=== PATIENT | male | born 1965 | race African-American/Black ===

== ENCOUNTER 2016-07-12 15:48 | Inpatient (IN) | payer OTHER ==
[2016-07-12 17:44] VITALS: BMI 27.1
--- NOTE | 2016-07-12 20:11 | HP ---
CIWA Score - CIWA Score Nausea/Vomitin-Mild Nausea/No Vomiting Muscle Tremors: 4-Moderate,w/Arms Extend Anxiety: 4-Mod. Anxious/Guarded Agitation: 4-Moderately Restless Paroxysmal Sweats: 1-Minimal Palms Moist Orientation: 1-Uncertain about Date Tacttile Disturbances: 0-None Auditory Disturbances: 2-Mild Harshness/Frighten Visual Disturbances: 2-Mild Sensitivity Headache: 0-None Present CIWA-Ar Total Score: 19 Admission ROS BHS - HPI Chief Complaint: WITHDRAWAL SX Allergies/Adverse Reactions: Allergies Allergy/AdvReac Type Severity Reaction Status Date / Time egg Allergy Severe Hives Verified 09/05/15 14:08 History of Present Illness: 50 YEARS OLD MALE WITH LONG HISTORY OF ALCOHOL NICOTINE DEPENDENCE, HAS HYPERTENSION AND SCHIZOPHRENIA LONGEST SOBRIETY 28 DAYS IS ADMITTED TO DETOX Exam Limitations: No Limitations - Ebola screening Have you traveled outside of the country in the last 21 days: No Have you had contact with anyone from an Ebola affected area: No Have you been sick,other than usual withdrawal symptoms: No Do you have a fever: No - Review of Systems Constitutional: Chills, Changes in sleep, Weight Stable EENT: reports: No Symptoms Reported Respiratory: reports: SOB with Exertion Cardiac: reports: Chest Pain (CHRONIC CHEST PAIN), Palpitations GI: reports: Nausea, Poor Fluid Intake, Indigestion, Abdominal cramping : reports: No Symptoms Reported Musculoskeletal: reports: Joint Pain (RIGHT HAND) Integumentary: reports: No Symptoms Reported Neuro: reports: Tremors Endocrine: reports: No Symptoms Reported Hematology: reports: No Symptoms Reported Psychiatric: reports: Judgement Intact, Anxious, Depressed Other Systems: Reviewed and Negative Patient History - Patient Medical History Hx Anemia: No Hx Asthma: No Hx Chronic Obstructive Pulmonary Disease (COPD): No Hx Cancer: No Hx Cardiac Disorders: No Hx Congestive Heart Failure: No Hx Hypertension: Yes Hx Hypercholesterolemia: Yes Hx Pacemaker: No HX Cerebrovascular Accident: No Hx Seizures: No Hx Dementia: No Hx Diabetes: No Hx Gastrointestinal Disorders: No Hx Liver Disease: No Hx Genitourinary Disorders: No Hx Sexually Transmitted Disorders: No Hx Renal Disease (ESRD): No Hx Thyroid Disease: No Hx Human Immunodeficiency Virus (HIV): No (LAST 07/11 NEGATIVE) Hx Hepatitis C: No Hx Depression: No Hx Suicide Attempt: No (last 2015, "DO NOT REMEMBER WHAT HAPPEN") Hx Bipolar Disorder: No (on meds, also on xanax Rx for panic disorder) Hx Schizophrenia: Yes - Patient Surgical History Past Surgical History: No Hx Neurologic Surgery: No Hx Cataract Extraction: No Hx Cardiac Surgery: No Hx Lung Surgery: No Hx Breast Surgery: No Hx Breast Biopsy: No Hx Abdominal Surgery: No Hx Appendectomy: No Hx Cholecystectomy: No Hx Genitourinary Surgery: No Hx Orthopedic Surgery: No - PPD History Previous Implant?: Yes Documented Results: Negative w/proof Implanted On Prior [facility] Admission?: Yes Date: 12/31/16 Results: 0 mm PPD to be Administered?: No - Smoking Cessation Smoking history: Current every day smoker Have you smoked in the past 12 months: Yes Aproximately how many cigarettes per day: 4 Cigars Per Day: 0 Hx Chewing Tobacco Use: No Initiated information on smoking cessation: Yes 'Breaking Loose' booklet given: 07/12/16 - Substance & Tx. History Hx Alcohol Use: Yes Hx Substance Use: Yes Substance Use Type: Alcohol, Cocaine Hx Substance Use Treatment: Yes - Substances Abused Alcohol Route: Oral Frequency: Daily Amount used: 1/2 [place] Age of first use: 19 Date of Last Use: 07/12/16 Family Disease History - Family Disease History Family Disease History: Other: Father (alcohol,), Mother (alcohol, ), Sister (alcohol) Admission Physical Exam S - Vital Signs Vital Signs: Vital Signs - 24 hr 07/12/16 17:41 Temperature 96.2 F L Pulse Rate 92 H Respiratory 20 Rate Blood Pressure 151/96 - Physical General Appearance: Yes: Appropriately Dressed, Mild Distress, Alcohol on Breath , Tremorous, Irritable, Sweating, Anxious HEENTM: Yes: Hearing grossly Normal, Normal ENT Inspection, Normocephalic, Normal Voice Respiratory: Yes: Chest Non-Tender, Lungs Clear, Normal Breath Sounds, No Respiratory Distress, No Accessory Muscle Use Neck: Yes: Supple, Trachea in good position Breast: Yes: Breasts Symetrical Cardiology: Yes: Regular Rhythm, Regular Rate, S1, S2, Other (CHRONIC CHEST PAIN "MY HEART SKIP BEAT EVERY 2-3 MONTHS") Abdominal: Yes: Non Tender, Soft Genitourinary: Yes: Within Normal Limits Back: Yes: Normal Inspection Musculoskeletal: Yes: full range of Motion, Gait Steady, Muscle Pain (RIGHT HAND ) Extremities: Yes: Normal Inspection, Normal Range of Motion, Non-Tender, Tremors Neurological: Yes: Alert, Motor Strength 5/5, Normal Response, Depressed Affect Integumentary: Yes: Warm Lymphatic: Yes: Within Normal Limits - Diagnostic (1) Alcohol dependence with uncomplicated withdrawal Current Visit: Yes Status: Acute (2) Nicotine dependence Current Visit: Yes Status: Acute Qualifiers: Nicotine product type: cigarettes Substance use status: uncomplicated Qualified Code(s): F17.210 - Nicotine dependence, cigarettes, uncomplicated (3) GERD (gastroesophageal reflux disease) Current Visit: Yes Status: Acute Qualifiers: Esophagitis presence: without esophagitis Qualified Code(s): K21.9 - Gastro-esophageal reflux disease without esophagitis (4) HTN (hypertension) Current Visit: Yes Status: Acute Qualifiers: Hypertension type: essential hypertension Qualified Code(s): I10 - Essential (primary) hypertension (5) Schizophrenia Current Visit: Yes Status: Suspected Qualifiers: Schizophrenia type: disorganized schizophrenia Qualified Code(s): F20.1 - Disorganized schizophrenia (6) Chronic chest wall pain Current Visit: Yes Status: Inactive Comment: "MY HEART SKIP BEAT EVERY 2-3 MONTHS" Cleared for Admission [facility] - Detox or Rehab [facility] Level of Care: Medically Managed Detox Regimen/Protocol: Librium [facility] Breath Alcohol Content Breath Alcohol Content: 0.065 Urine Drug Screen - Results Drug Screen Negative: No Urine Drug Screen Results: ASYA-Cocaine, TCA-Tricyclic Antidepress
[2016-07-12] MEDS ORDERED: chlordiazePOXIDE HCL 25 MG CAPSULE PO PRN (20:15)
[2016-07-12] MEDS ORDERED: ACETAMINOPHEN 325 MG TABLET (FP) PO PRN (20:15)
[2016-07-12] MEDS ORDERED: hydrOXYzine PAMOATE 50 MG CAPSULE (FP) PO PRN (20:15)
[2016-07-12] MEDS ORDERED: MENTHOL/PHENOL 1 EACH UD MM PRN (20:15)
[2016-07-12] MEDS ORDERED: IBUPROFEN 400 MG TABLET (FP) PO PRN (20:15)
[2016-07-12] MEDS ORDERED: guaiFENesin/D-METHORPHAN HB 10 ML UNIT-DOSE CUPS PO PRN (20:15)
[2016-07-12] MEDS ORDERED: LOPERAMIDE HCL 2 MG CAPSULE PO PRN (20:15)
[2016-07-12] MEDS ORDERED: MAG HYDROX/AL HYDROX/SIMETH 30 ML UNIT-DOSE CUP PO PRN (20:15)
[2016-07-12] MEDS ORDERED: MAGNESIUM CITRATE 300 ML BOTTLE PO PRN (20:15)
[2016-07-12] MEDS ORDERED: MAGNESIUM HYDROX 2400MG/30ML ORAL SUSPENSION 30 ML CUP PO PRN (20:15)
[2016-07-12] MEDS ORDERED: P-EPHED 60MG/TRIPROLIDI 2.5MG TABLET PO PRN (20:15)
[2016-07-12] MEDS ORDERED: cloNIDine HCL 0.1 MG TABLET PO PRN (20:20)
[2016-07-12] MEDS: THIAMINE HCL 100 MG TABLET (FP) PO SCH (22:30)
[2016-07-12] MEDS: chlordiazePOXIDE HCL 25 MG CAPSULE PO SCH (22:30)
[2016-07-12] MEDS: RANITIDINE HCL 150 MG TABLET (FP) PO SCH (22:30)
[2016-07-12 23:27] LABS: URINE APPEARANCE CLEAR; URINE BILIRUBIN NEGATIVE (NEGATIVE); URINE BLOOD NEGATIVE (NEGATIVE); URINE COLOR LTYELLOW; URINE GLUCOSE (UA) NEGATIVE (NEGATIVE); URINE KETONE NEGATIVE (NEGATIVE); URINE LEUK ESTERASE NEGATIVE (NEGATIVE); URINE NITRITE NEGATIVE (NEGATIVE); URINE PROTEIN NEGATIVE (NEGATIVE); URINE UROBILINOGEN NEGATIVE E.U./dl (0.2-1.0)
[2016-07-12] MEDS: diphenhydrAMINE HCL 50 MG CAPSULE PO PRN (23:30)
[2016-07-13] MEDS: diphenhydrAMINE HCL 50 MG CAPSULE PO PRN (01:51)
[2016-07-13] MEDS: chlordiazePOXIDE HCL 25 MG CAPSULE PO SCH ×4 (05:28→22:12)
--- NOTE | 2016-07-13 10:26 | PN ---
[facility] CIWA - CIWA Score Nausea/Vomitin-No Nausea/No Vomiting Muscle Tremors: 4-Moderate,w/Arms Extend Anxiety: 4-Mod. Anxious/Guarded Agitation: 4-Moderately Restless Paroxysmal Sweats: 1-Minimal Palms Moist Orientation: 0-Oriented Tacttile Disturbances: 3-Moderate Itch/Numb/Burn Auditory Disturbances: 0-None Visual Disturbances: 0-None Headache: 0-None Present CIWA-Ar Total Score: 16 BHS Progress Note (SOAP) Subjective: ANXIETY,SWEATS,IRRITABILITY,FATIGUE. Objective: 07/13/16 10:24 Vital Signs Temperature 95.9 F L 07/13/16 10:21 Pulse Rate 85 07/13/16 10:21 Respiratory Rate 18 07/13/16 10:21 Blood Pressure 156/106 07/13/16 10:21 O2 Sat by Pulse Oximetry (%) Laboratory Last Values Urine Color Ltyellow 07/12/16 21:29 Urine Appearance Clear 07/12/16 21:29 Urine pH 6.0 (5.0-8.0) 07/12/16 21:29 Ur Specific [place] 1.012 (1.001-1.035) 07/12/16 21:29 Urine Protein Negative (NEGATIVE) 07/12/16 21:29 Urine Glucose (UA) Negative (NEGATIVE) 07/12/16 21:29 Urine Ketones Negative (NEGATIVE) 07/12/16 21:29 Urine Blood Negative (NEGATIVE) 07/12/16 21:29 Urine Nitrite Negative (NEGATIVE) 07/12/16 21:29 Urine Bilirubin Negative (NEGATIVE) 07/12/16 21:29 Urine Urobilinogen Negative E.U./dl (0.2-1.0) 07/12/16 21:29 Ur Leukocyte Esterase Negative (NEGATIVE) 07/12/16 21:29 OTHER LABS PENDING Assessment: 07/13/16 10:25 WITHDRAWAL SX Plan: CONTINUE DETOX
[2016-07-13] MEDS: RANITIDINE HCL 150 MG TABLET (FP) PO SCH ×2 (10:29→22:12)
[2016-07-13] MEDS: PRENATAL VITAMINS W/ FOLIC ACID TABLET (FP) PO SCH (10:29)
[2016-07-13] MEDS: HYDROCHLOROTHIAZIDE 25 MG TABLET (FP) PO SCH (10:29)
[2016-07-13] MEDS: NICOTINE 14 MG/24 HOURS TOPICAL PATCH TD SCH (10:29)
[2016-07-13 10:31] LABS: ALBUMIN 3.3 g/dl (3.4-5.0); ANION GAP 8 (8-16); BILIRUBIN,TOTAL 0.4 mg/dL (0.2-1.0); CALCIUM 8.7 mg/dL (8.5-10.1); CO2 27 mmol/L (21-32); GLUCOSE,RANDOM 94 mg/dL (74-106); MCHC 33.6 g/dl (32.0-35.9); MEAN CELL VOLUME 86.3 fl (80-96); MEAN PLT VOLUME 8.5 fl (7.5-11.1); PLATELET COUNT 201 K/MM3 (134-434); RDW 16.4 % (11.9-15.9); SGOT/AST 33 U/L (15-37); SGPT/ALT 49 U/L (12-78); WHITE BLOOD COUNT 8.8 K/mm3 (4.0-10.0)
[2016-07-13 10:33] LABS: ALK PHOS 83 U/L (45-117); TOT PROT 6.9 g/dl (6.4-8.2)
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
--- NOTE | 2016-07-13 11:47 | EKG ---
Test Reason : Blood Pressure : / mmHG Vent. Rate : 075 BPM Atrial Rate : 075 BPM P-R Int : 180 ms QRS Dur : 088 ms QT Int : 426 ms P-R-T Axes : 056 035 061 degrees QTc Int : 475 ms NORMAL SINUS RHYTHM POSSIBLE LEFT ATRIAL ENLARGEMENT SEPTAL INFARCT , AGE UNDETERMINED ABNORMAL ECG NO PREVIOUS ECGS AVAILABLE Confirmed by GERMANIA BOGSG MD ([id number]) on 07/13/2016 11:47:49 AM Referred By: Confirmed By:GERMANIA BOGGS MD
[2016-07-13 12:27] LABS: HIV 1 & 2 AB NEGATIVE; HIV 1 AGp24 NEGATIVE
[2016-07-13] MEDS: traZODone HCL 100 MG TABLET (FP) PO SCH (22:12)
[2016-07-13] MEDS: QUEtiapine FUMARATE 300 MG TABLET PO SCH (22:12)
[2016-07-13] MEDS: THIAMINE HCL 100 MG TABLET (FP) PO SCH (22:12)
[2016-07-14] MEDS: chlordiazePOXIDE HCL 25 MG CAPSULE PO SCH ×3 (05:32→17:27)
[2016-07-14] MEDS: CYCLOBENZAPRINE HCL 10 MG TABLET (FP) PO PRN ×2 (05:32→10:30)
[2016-07-14] MEDS: PRENATAL VITAMINS W/ FOLIC ACID TABLET (FP) PO SCH (10:30)
[2016-07-14] MEDS: NICOTINE 14 MG/24 HOURS TOPICAL PATCH TD SCH (10:30)
[2016-07-14] MEDS: RANITIDINE HCL 150 MG TABLET (FP) PO SCH ×2 (10:30→22:14)
[2016-07-14] MEDS: HYDROCHLOROTHIAZIDE 25 MG TABLET (FP) PO SCH (10:32)
--- NOTE | 2016-07-14 10:47 | PN ---
[facility] CIWA - CIWA Score Nausea/Vomitin-No Nausea/No Vomiting Muscle Tremors: 4-Moderate,w/Arms Extend Anxiety: 4-Mod. Anxious/Guarded Agitation: 4-Moderately Restless Paroxysmal Sweats: 1-Minimal Palms Moist Orientation: 0-Oriented Tacttile Disturbances: 3-Moderate Itch/Numb/Burn Auditory Disturbances: 0-None Visual Disturbances: 0-None Headache: 0-None Present CIWA-Ar Total Score: 16 BHS Progress Note (SOAP) Subjective: ANXIETY,SWEATS,SLIGHT TREMORS,FATIGUE. Objective: 07/14/16 10:47 Vital Signs Temperature 97.0 F L 07/14/16 10:18 Pulse Rate 90 07/14/16 10:18 Respiratory Rate 20 07/14/16 10:18 Blood Pressure 118/84 07/14/16 10:18 O2 Sat by Pulse Oximetry (%) Laboratory Last Values WBC 8.8 K/mm3 (4.0-10.0) 07/13/16 07:00 RBC 4.29 M/mm3 (4.00-5.60) 07/13/16 07:00 Hgb 12.4 GM/dL (11.7-16.9) 07/13/16 07:00 Hct 37.0 % (35.4-49) 07/13/16 07:00 MCV 86.3 fl (80-96) 07/13/16 07:00 MCHC 33.6 g/dl (32.0-35.9) 07/13/16 07:00 RDW 16.4 % (11.9-15.9) H 07/13/16 07:00 Plt Count 201 K/MM3 (134-434) 07/13/16 07:00 MPV 8.5 fl (7.5-11.1) 07/13/16 07:00 Sodium 139 mmol/L (136-145) 07/13/16 07:00 Potassium 3.8 mmol/L (3.5-5.1) 07/13/16 07:00 Chloride 104 mmol/L (98-107) 07/13/16 07:00 Carbon Dioxide 27 mmol/L (21-32) 07/13/16 07:00 Anion Gap 8 (8-16) 07/13/16 07:00 BUN 13 mg/dL (7-18) 07/13/16 07:00 Creatinine 1.0 mg/dL (0.7-1.3) 07/13/16 07:00 Creat Clearance w eGFR > 60 (>60) 07/13/16 07:00 Random Glucose 94 mg/dL (74-106) 07/13/16 07:00 Calcium 8.7 mg/dL (8.5-10.1) 07/13/16 07:00 Total Bilirubin 0.4 mg/dL (0.2-1.0) 07/13/16 07:00 AST 33 U/L (15-37) 07/13/16 07:00 ALT 49 U/L (12-78) 07/13/16 07:00 Alkaline Phosphatase 83 U/L (45-117) 07/13/16 07:00 Total Protein 6.9 g/dl (6.4-8.2) 07/13/16 07:00 Albumin 3.3 g/dl (3.4-5.0) L 07/13/16 07:00 Urine Color Ltyellow 07/12/16 21:29 Urine Appearance Clear 07/12/16 21:29 Urine pH 6.0 (5.0-8.0) 07/12/16 21:29 Ur Specific [place] 1.012 (1.001-1.035) 07/12/16 21:29 Urine Protein Negative (NEGATIVE) 07/12/16 21:29 Urine Glucose (UA) Negative (NEGATIVE) 07/12/16 21:29 Urine Ketones Negative (NEGATIVE) 07/12/16 21:29 Urine Blood Negative (NEGATIVE) 07/12/16 21:29 Urine Nitrite Negative (NEGATIVE) 07/12/16 21:29 Urine Bilirubin Negative (NEGATIVE) 07/12/16 21:29 Urine Urobilinogen Negative E.U./dl (0.2-1.0) 07/12/16 21:29 Ur Leukocyte Esterase Negative (NEGATIVE) 07/12/16 21:29 RPR Titer Nonreactive (NONREACTIVE) 07/13/16 07:00 HIV 1&2 Antibody Screen Negative 07/13/16 07:00 HIV P24 Antigen Negative 07/13/16 07:00 Assessment: 07/14/16 10:47 WITHDRAWAL SX Plan: CONTINUE DETOX
[2016-07-14] MEDS: chlordiazePOXIDE 5 MG CAPSULE PO SCH (22:14)
[2016-07-14] MEDS: QUEtiapine FUMARATE 300 MG TABLET PO SCH (22:14)
[2016-07-14] MEDS: THIAMINE HCL 100 MG TABLET (FP) PO SCH (22:14)
[2016-07-14] MEDS: traZODone HCL 100 MG TABLET (FP) PO SCH (22:15)
[2016-07-15] MEDS: chlordiazePOXIDE 5 MG CAPSULE PO SCH ×3 (05:37→17:03)
[2016-07-15] MEDS: PRENATAL VITAMINS W/ FOLIC ACID TABLET (FP) PO SCH (10:44)
[2016-07-15] MEDS: RANITIDINE HCL 150 MG TABLET (FP) PO SCH ×2 (10:44→22:19)
[2016-07-15] MEDS: HYDROCHLOROTHIAZIDE 25 MG TABLET (FP) PO SCH (10:45)
[2016-07-15] MEDS: NICOTINE 14 MG/24 HOURS TOPICAL PATCH TD SCH (10:45)
[2016-07-15] MEDS: NICOTINE POLACRILEX 2 MG GUM BC PRN ×2 (10:47→17:05)
--- NOTE | 2016-07-15 11:01 | PN ---
BHS Progress Note (SOAP) Subjective: ANXIETY,SWEATS,FATIGUE. Objective: 07/15/16 11:00 Vital Signs Temperature 95.6 F L 07/15/16 09:33 Pulse Rate 107 H 07/15/16 09:33 Respiratory Rate 20 07/15/16 09:33 Blood Pressure 117/82 07/15/16 09:33 O2 Sat by Pulse Oximetry (%) Assessment: 07/15/16 11:00 WITHDRAWAL SX Plan: CONTINUE DETOX
[2016-07-15] MEDS: traZODone HCL 100 MG TABLET (FP) PO SCH (22:19)
[2016-07-15] MEDS: chlordiazePOXIDE HCL 10 MG CAPSULE PO SCH (22:19)
[2016-07-15] MEDS: THIAMINE HCL 100 MG TABLET (FP) PO SCH (22:19)
[2016-07-15] MEDS: QUEtiapine FUMARATE 300 MG TABLET PO SCH (22:19)
[2016-07-16] MEDS: chlordiazePOXIDE HCL 10 MG CAPSULE PO SCH (05:24)
[2016-07-16] MEDS: CYCLOBENZAPRINE HCL 10 MG TABLET (FP) PO PRN (05:25)
[2016-07-16 06:31] VITALS: BP 105/71; PULSE 92; TEMP 97
--- NOTE | 2016-07-16 12:53 | DS ---
[facility] Detox Discharge Summary Admission Date: 07/12/16 Discharge Date: 07/16/16 - History Present History: Alcohol Dependence Pertinent Past History: GERD, HTN - Physical Exam Results Vital Signs: Vital Signs Temperature 97 F L 07/16/16 06:31 Pulse Rate 92 H 07/16/16 06:31 Respiratory Rate 18 07/16/16 06:31 Blood Pressure 105/71 07/16/16 06:31 O2 Sat by Pulse Oximetry (%) Pertinent Admission Physical Exam Findings: WITHDRAWAL SX Laboratory Last Values WBC 8.8 K/mm3 (4.0-10.0) 07/13/16 07:00 RBC 4.29 M/mm3 (4.00-5.60) 07/13/16 07:00 Hgb 12.4 GM/dL (11.7-16.9) 07/13/16 07:00 Hct 37.0 % (35.4-49) 07/13/16 07:00 MCV 86.3 fl (80-96) 07/13/16 07:00 MCHC 33.6 g/dl (32.0-35.9) 07/13/16 07:00 RDW 16.4 % (11.9-15.9) H 07/13/16 07:00 Plt Count 201 K/MM3 (134-434) 07/13/16 07:00 MPV 8.5 fl (7.5-11.1) 07/13/16 07:00 Sodium 139 mmol/L (136-145) 07/13/16 07:00 Potassium 3.8 mmol/L (3.5-5.1) 07/13/16 07:00 Chloride 104 mmol/L (98-107) 07/13/16 07:00 Carbon Dioxide 27 mmol/L (21-32) 07/13/16 07:00 Anion Gap 8 (8-16) 07/13/16 07:00 BUN 13 mg/dL (7-18) 07/13/16 07:00 Creatinine 1.0 mg/dL (0.7-1.3) 07/13/16 07:00 Creat Clearance w eGFR > 60 (>60) 07/13/16 07:00 Random Glucose 94 mg/dL (74-106) 07/13/16 07:00 Calcium 8.7 mg/dL (8.5-10.1) 07/13/16 07:00 Total Bilirubin 0.4 mg/dL (0.2-1.0) 07/13/16 07:00 AST 33 U/L (15-37) 07/13/16 07:00 ALT 49 U/L (12-78) 07/13/16 07:00 Alkaline Phosphatase 83 U/L (45-117) 07/13/16 07:00 Total Protein 6.9 g/dl (6.4-8.2) 07/13/16 07:00 Albumin 3.3 g/dl (3.4-5.0) L 07/13/16 07:00 Urine Color Ltyellow 07/12/16 21:29 Urine Appearance Clear 07/12/16 21:29 Urine pH 6.0 (5.0-8.0) 07/12/16 21:29 Ur Specific [place] 1.012 (1.001-1.035) 07/12/16 21:29 Urine Protein Negative (NEGATIVE) 07/12/16 21:29 Urine Glucose (UA) Negative (NEGATIVE) 07/12/16 21:29 Urine Ketones Negative (NEGATIVE) 07/12/16 21:29 Urine Blood Negative (NEGATIVE) 07/12/16 21:29 Urine Nitrite Negative (NEGATIVE) 07/12/16 21:29 Urine Bilirubin Negative (NEGATIVE) 07/12/16 21:29 Urine Urobilinogen Negative E.U./dl (0.2-1.0) 07/12/16 21:29 Ur Leukocyte Esterase Negative (NEGATIVE) 07/12/16 21:29 RPR Titer Nonreactive (NONREACTIVE) 07/13/16 07:00 HIV 1&2 Antibody Screen Negative 07/13/16 07:00 HIV P24 Antigen Negative 07/13/16 07:00 LABS NOTED - Treatment Hospital Course: Detox Protocol Followed, Detoxed Safely, Responded well, Discharged Condition Good - Medication Discharge Medications: Ambulatory Orders Thiamine HCl [Vitamin B1 -] 100 mg PO HS #30 tablet 11/30/14 Quetiapine Fumarate [Seroquel -] 200 mg PO HS #30 tablet 04/21/15 Hydrochlorothiazide [Hctz -] 25 mg PO DAILY #30 tablet 04/24/15 Pantoprazole Sodium [Protonix] 40 mg PO DAILY #30 tablet. 02/01/16 Alprazolam [Xanax] 0.25 mg PO DAILY PRN 09/05/15 Quetiapine Fumarate [Seroquel -] 200 mg PO HS #30 tab 09/07/15 Quetiapine Fumarate [Seroquel -] 600 mg PO HS #60 tablet 07/13/16 Trazodone HCl [Desyrel -] 100 mg PO HS #30 tablet 07/13/16 - Diagnosis (1) Drug-induced mood disorder Status: Acute (2) Alcohol dependence with uncomplicated withdrawal Status: Acute (3) Anxiety disorder Status: Acute Qualifiers: Anxiety disorder type: generalized anxiety disorder Qualified Code(s ): F41.1 - Generalized anxiety disorder (4) Cocaine dependence Status: Acute Qualifiers: Substance use status: uncomplicated Qualified Code(s): F14.20 - Cocaine dependence, uncomplicated (5) GERD (gastroesophageal reflux disease) Status: Chronic Qualifiers: Esophagitis presence: without esophagitis Qualified Code(s): K21.9 - Gastro-esophageal reflux disease without esophagitis (6) HTN (hypertension) Status: Chronic Qualifiers: Hypertension type: essential hypertension Qualified Code(s): I10 - Essential (primary) hypertension - AMA Did Patient Leave Against Medical Advice: No
== END 2016-07-16 09:40 | disposition home or self-care (01) | DRG 774 ==
LOC: YASAS 15:48 → Y3N 20:52
PROVIDERS: ADMIT Internal Medicine; ATTEND Internal Medicine
PROC: HZ2ZZZZ Detoxification Services for Substance Abuse Treatment (ICD-10-PCS; principal; 2016-07-12)
DX: F10.230 Alcohol dependence with withdrawal, uncomplicated (principal); F14.20 Cocaine dependence, uncomplicated; F17.210 Nicotine dependence, cigarettes, uncomplicated; F19.24 Other psychoactive substance dependence with psychoactive substance-induced mood disorder; F41.1 Generalized anxiety disorder; F25.1 Schizoaffective disorder, depressive type; K21.9 Gastro-esophageal reflux disease without esophagitis; I10 Essential (primary) hypertension; E78.5 Hyperlipidemia, unspecified; R07.89 Other chest pain; Z91.5 Personal history of self-harm
CPT/HCPCS: 36415; 80053; 81003; 85027; 86593; 87389; 93005; 93010

== ENCOUNTER 2017-07-11 11:45 | Inpatient (IN) | payer OTHER ==
[2017-07-11 14:33] VITALS: BMI 27.3
--- NOTE | 2017-07-11 16:35 | HP ---
CIWA Score - CIWA Score Nausea/Vomitin-Mild Nausea/No Vomiting Muscle Tremors: 4-Moderate,w/Arms Extend Anxiety: 4-Mod. Anxious/Guarded Agitation: 4-Moderately Restless Paroxysmal Sweats: 1-Minimal Palms Moist Orientation: 0-Oriented Tacttile Disturbances: 0-None Auditory Disturbances: 1-Very Mild (man voices) Visual Disturbances: 1-Very Mild Sensitivity (seeing shadow) Headache: 0-None Present CIWA-Ar Total Score: 16 Admission ROS BHS - HPI Chief Complaint: withdrawal sx Allergies/Adverse Reactions: Allergies Allergy/AdvReac Type Severity Reaction Status Date / Time egg Allergy Severe Hives Verified 07/12/16 20:57 History of Present Illness: 51 years old male with long history of alcohol nicotine dependence has gerd hypertension and bipolar ii is admitted to detox Exam Limitations: No Limitations - Ebola screening Have you traveled outside of the country in the last 21 days: No Have you had contact with anyone from an Ebola affected area: No Have you been sick,other than usual withdrawal symptoms: No Do you have a fever: No - Review of Systems Constitutional: Changes in sleep, Weight Stable EENT: reports: Blurred Vision (need eye glasses) Respiratory: reports: No Symptoms reported Cardiac: reports: Chest Pain (chronic chest pain x 3 years, no treatment, last 20 minutes, angely away itself,) GI: reports: Constipated, Nausea, Poor Fluid Intake, Indigestion, Abdominal cramping : reports: No Symptoms Reported Musculoskeletal: reports: No Symptoms Reported Integumentary: reports: Dryness Neuro: reports: Tremors Endocrine: reports: No Symptoms Reported Hematology: reports: No Symptoms Reported Psychiatric: reports: Judgement Intact, Orientated x3, Anxious, Depressed Other Systems: Reviewed and Negative Patient History - Patient Medical History Hx Anemia: No Hx Asthma: No Hx Chronic Obstructive Pulmonary Disease (COPD): No Hx Cancer: No Hx Cardiac Disorders: No Hx Congestive Heart Failure: No Hx Hypertension: Yes (last dose 07/04/17) Hx Hypercholesterolemia: Yes (unknown name) Hx Pacemaker: No HX Cerebrovascular Accident: No Hx Seizures: No Hx Dementia: No Hx Diabetes: No Hx Gastrointestinal Disorders: Yes (ACID REFLUX) Hx Liver Disease: No Hx Genitourinary Disorders: No Hx Sexually Transmitted Disorders: No Hx Renal Disease (ESRD): No Hx Thyroid Disease: No Hx Human Immunodeficiency Virus (HIV): No (LAST 07/11 NEGATIVE) Hx Hepatitis C: No Hx Depression: No Hx Suicide Attempt: No Hx Bipolar Disorder: Yes (on meds, also on xanax Rx for panic disorder) Hx Schizophrenia: No - Patient Surgical History Past Surgical History: No Hx Neurologic Surgery: No Hx Cataract Extraction: No Hx Cardiac Surgery: No Hx Lung Surgery: No Hx Breast Surgery: No Hx Breast Biopsy: No Hx Abdominal Surgery: No Hx Appendectomy: No Hx Cholecystectomy: No Hx Genitourinary Surgery: No Hx Orthopedic Surgery: No - PPD History Previous Implant?: Yes Documented Results: Negative w/proof Implanted On Prior [facility] Admission?: Yes Date: 12/31/16 Results: 0 mm PPD to be Administered?: No - Smoking Cessation Smoking history: Current every day smoker Have you smoked in the past 12 months: Yes Aproximately how many cigarettes per day: 4 Cigars Per Day: 0 Hx Chewing Tobacco Use: No Initiated information on smoking cessation: Yes 'Breaking Loose' booklet given: 07/11/17 - Substance & Tx. History Hx Alcohol Use: Yes Hx Substance Use: Yes Substance Use Type: Alcohol, Cocaine Hx Substance Use Treatment: Yes (06/2016 [facility] - Substances Abused Alcohol Route: Oral Frequency: Daily Amount used: 1 pint of vodka Age of first use: 18 Date of Last Use: 07/11/17 Cocaine Route: Inhalation Frequency: 1-2 times per week Amount used: $20 Age of first use: 29 Date of Last Use: 06/10/17 Family Disease History - Family Disease History Family Disease History: Other: Father (alcohol,), Mother (alcohol, ), Brother, Sister (alcohol) Admission Physical Exam S - Vital Signs Vital Signs: Vital Signs - 24 hr 07/11/17 14:26 Temperature 97.2 F L Pulse Rate 93 H Respiratory 20 Rate Blood Pressure 174/115 - Physical General Appearance: Yes: Appropriately Dressed, Mild Distress, Alcohol on Breath , Tremorous, Irritable, Sweating, Anxious HEENTM: Yes: Hearing grossly Normal, Normal ENT Inspection, Normocephalic, Normal Voice Respiratory: Yes: Chest Non-Tender, Lungs Clear, Normal Breath Sounds, No Respiratory Distress, No Accessory Muscle Use Neck: Yes: Supple, Trachea in good position Breast: Yes: Breasts Symetrical Cardiology: Yes: Regular Rhythm, S1, S2, Tachycardia Abdominal: Yes: Non Tender, Soft, Decreased BS Genitourinary: Yes: Within Normal Limits Back: Yes: Normal Inspection Musculoskeletal: Yes: full range of Motion, Gait Steady Extremities: Yes: Normal Inspection, Normal Range of Motion, Non-Tender, Tremors Neurological: Yes: Fully Oriented, Alert, Motor Strength 5/5, Normal Response, Depressed Affect Integumentary: Yes: Dry, Warm Lymphatic: Yes: Within Normal Limits - Diagnostic (1) Bipolar II disorder Current Visit: Yes Status: Suspected (2) Alcohol dependence with uncomplicated withdrawal Current Visit: Yes Status: Acute (3) GERD (gastroesophageal reflux disease) Current Visit: Yes Status: Chronic Qualifiers: Esophagitis presence: without esophagitis Qualified Code(s): K21.9 - Gastro -esophageal reflux disease without esophagitis (4) HTN (hypertension) Current Visit: Yes Status: Chronic Qualifiers: Hypertension type: essential hypertension Qualified Code(s): I10 - Essential (primary) hypertension (5) Nicotine dependence Current Visit: Yes Status: Acute Qualifiers: Nicotine product type: cigarettes Substance use status: in withdrawal Qualified Code(s): F17.213 - Nicotine dependence, cigarettes, with withdrawal Cleared for Admission [facility] - Detox or Rehab [facility] Level of Care: Medically Managed Detox Regimen/Protocol: Librium [facility] Breath Alcohol Content Breath Alcohol Content: 0.094 Urine Drug Screen - Results Drug Screen Negative: No Urine Drug Screen Results: ASYA-Cocaine
[2017-07-11] MEDS ORDERED: P-EPHED 60MG/TRIPROLIDI 2.5MG TABLET PO PRN (16:37)
[2017-07-11] MEDS ORDERED: MAGNESIUM CITRATE 300 ML BOTTLE PO PRN (16:37)
[2017-07-11] MEDS ORDERED: LOPERAMIDE HCL 2 MG CAPSULE PO PRN (16:37)
[2017-07-11] MEDS ORDERED: MAGNESIUM HYDROX 2400MG/30ML ORAL SUSPENSION 30 ML CUP PO PRN (16:37)
[2017-07-11] MEDS ORDERED: MENTHOL/PHENOL 1 EACH UD MM PRN (16:37)
[2017-07-11] MEDS ORDERED: MAG HYDROX/AL HYDROX/SIMETH 30 ML UNIT-DOSE CUP PO PRN (16:37)
[2017-07-11] MEDS ORDERED: guaiFENesin/D-METHORPHAN HB 10 ML UNIT-DOSE CUPS PO PRN (16:37)
[2017-07-11] MEDS ORDERED: ACETAMINOPHEN 325 MG TABLET (FP) PO PRN (16:37)
[2017-07-11] MEDS ORDERED: COLLOIDAL OATMEAL 1 BAR EACH TP PRN (16:41)
[2017-07-11] MEDS: HYDROCHLOROTHIAZIDE 25 MG TABLET (FP) PO SCH (19:16)
[2017-07-11] MEDS: chlordiazePOXIDE HCL 25 MG CAPSULE PO PRN (19:16)
[2017-07-11] MEDS: NICOTINE POLACRILEX 2 MG GUM BC PRN (19:52)
[2017-07-11] MEDS ORDERED: hydrOXYzine PAMOATE 50 MG CAPSULE (FP) PO ONE (22:00)
[2017-07-11] MEDS: chlordiazePOXIDE HCL 25 MG CAPSULE PO SCH (22:05)
[2017-07-11] MEDS: RANITIDINE HCL 150 MG TABLET (FP) PO SCH (22:06)
[2017-07-11] MEDS: MINERAL OIL/PETROLAT/WATER TOPICAL CREAM 113 GM JAR TP SCH (22:06)
[2017-07-11] MEDS: QUEtiapine FUMARATE 400 MG TABLET PO SCH (22:06)
[2017-07-11] MEDS: THIAMINE HCL 100 MG TABLET (FP) PO SCH (22:06)
[2017-07-11 23:35] LABS: URINE APPEARANCE TURBID; URINE BILIRUBIN NEGATIVE (NEGATIVE); URINE BLOOD NEGATIVE (NEGATIVE); URINE COLOR YELLOW; URINE GLUCOSE (UA) NEGATIVE (NEGATIVE); URINE KETONE NEGATIVE (NEGATIVE); URINE LEUK ESTERASE NEGATIVE (NEGATIVE); URINE NITRITE NEGATIVE (NEGATIVE); URINE PROTEIN NEGATIVE (NEGATIVE); URINE UROBILINOGEN NEGATIVE mg/dL (0.2-1.0)
[2017-07-12] MEDS: chlordiazePOXIDE HCL 25 MG CAPSULE PO PRN (01:53)
[2017-07-12] MEDS: chlordiazePOXIDE HCL 25 MG CAPSULE PO SCH ×4 (05:23→22:28)
[2017-07-12 10:15] LABS: HEMATOCRIT 40.9 % (35.4-49); HEMOGLOBIN 13.3 GM/dL (11.7-16.9); MCH 30.2 pg (25.7-33.7); MCHC 32.6 g/dl (32.0-35.9); MEAN CELL VOLUME 92.6 fl (80-96); MEAN PLT VOLUME 9.3 fl (7.5-11.1); PLATELET COUNT 227 K/MM3 (134-434); RBC 4.41 M/mm3 (4.00-5.60); RDW 16.1 % (11.9-15.9); WHITE BLOOD COUNT 8.3 K/mm3 (4.0-10.0)
[2017-07-12 10:35] LABS: ANION GAP 11 (8-16); BLOOD UREA NITROGEN 14 mg/dL (7-18); CALCIUM 9.6 mg/dL (8.5-10.1); CHLORIDE 104 mmol/L (98-107); CO2 28 mmol/L (21-32); GLUCOSE,RANDOM 114 mg/dL (74-106); POTASSIUM 3.8 mmol/L (3.5-5.1); SGOT/AST 43 U/L (15-37); SODIUM 143 mmol/L (136-145)
[2017-07-12 10:36] LABS: ALK PHOS 106 U/L (45-117); BILIRUBIN,TOTAL 0.3 mg/dL (0.2-1.0); SGPT/ALT 65 U/L (12-78); TOT PROT 8.4 g/dl (6.4-8.2)
[2017-07-12] MEDS: NICOTINE 14 MG/24 HOURS TOPICAL PATCH TD SCH (10:37)
[2017-07-12] MEDS: PRENATAL VITAMINS W/ FOLIC ACID TABLET (FP) PO SCH (10:38)
[2017-07-12] MEDS: HYDROCHLOROTHIAZIDE 25 MG TABLET (FP) PO SCH (10:38)
[2017-07-12] MEDS: RANITIDINE HCL 150 MG TABLET (FP) PO SCH ×2 (10:38→22:29)
--- NOTE | 2017-07-12 10:45 | EKG ---
Test Reason : Blood Pressure : / mmHG Vent. Rate : 081 BPM Atrial Rate : 081 BPM P-R Int : 170 ms QRS Dur : 092 ms QT Int : 420 ms P-R-T Axes : 058 033 096 degrees QTc Int : 487 ms NORMAL SINUS RHYTHM T WAVE ABNORMALITY, CONSIDER LATERAL ISCHEMIA PROLONGED QT ABNORMAL ECG WHEN COMPARED WITH ECG OF 11-JUL-2017 20:10, INVERTED T WAVES HAVE REPLACED NONSPECIFIC T WAVE ABNORMALITY IN LATERAL LEADS Confirmed by GERMANIA BOGGS MD ([id number]) on 07/12/2017 10:45:08 AM Referred By: Confirmed By:GERMANIA BOGGS MD
--- NOTE | 2017-07-12 12:34 | PN ---
[facility] CIWA - CIWA Score Nausea/Vomitin-No Nausea/No Vomiting Muscle Tremors: 4-Moderate,w/Arms Extend Anxiety: 4-Mod. Anxious/Guarded Agitation: 4-Moderately Restless Paroxysmal Sweats: 1-Minimal Palms Moist Orientation: 0-Oriented Tacttile Disturbances: 3-Moderate Itch/Numb/Burn Auditory Disturbances: 0-None Visual Disturbances: 0-None Headache: 0-None Present CIWA-Ar Total Score: 16 S Progress Note (SOAP) Subjective: ANXIETY,SWEATS,TREMORS,INTERMITTENT SLEEP,FATIGUE. Objective: 07/12/17 12:33 Vital Signs Temperature 98.3 F 07/12/17 09:21 Pulse Rate 90 07/12/17 09:21 Respiratory Rate 18 07/12/17 09:21 Blood Pressure 125/88 07/12/17 09:21 O2 Sat by Pulse Oximetry (%) Laboratory Last Values WBC 8.3 K/mm3 (4.0-10.0) 07/12/17 05:45 RBC 4.41 M/mm3 (4.00-5.60) 07/12/17 05:45 Hgb 13.3 GM/dL (11.7-16.9) 07/12/17 05:45 Hct 40.9 % (35.4-49) 07/12/17 05:45 MCV 92.6 fl (80-96) 07/12/17 05:45 MCH 30.2 pg (25.7-33.7) 07/12/17 05:45 MCHC 32.6 g/dl (32.0-35.9) 07/12/17 05:45 RDW 16.1 % (11.9-15.9) H 07/12/17 05:45 Plt Count 227 K/MM3 (134-434) 07/12/17 05:45 MPV 9.3 fl (7.5-11.1) 07/12/17 05:45 Sodium 143 mmol/L (136-145) 07/12/17 05:45 Potassium 3.8 mmol/L (3.5-5.1) 07/12/17 05:45 Chloride 104 mmol/L (98-107) 07/12/17 05:45 Carbon Dioxide 28 mmol/L (21-32) 07/12/17 05:45 Anion Gap 11 (8-16) 07/12/17 05:45 BUN 14 mg/dL (7-18) 07/12/17 05:45 Creatinine 1.0 mg/dL (0.7-1.3) 07/12/17 05:45 Creat Clearance w eGFR > 60 (>60) 07/12/17 05:45 Random Glucose 114 mg/dL (74-106) H D 07/12/17 05:45 Calcium 9.6 mg/dL (8.5-10.1) 07/12/17 05:45 Total Bilirubin 0.3 mg/dL (0.2-1.0) D 07/12/17 05:45 AST 43 U/L (15-37) H D 07/12/17 05:45 ALT 65 U/L (12-78) D 07/12/17 05:45 Alkaline Phosphatase 106 U/L (45-117) D 07/12/17 05:45 Total Protein 8.4 g/dl (6.4-8.2) H D 07/12/17 05:45 Albumin 4.0 g/dl (3.4-5.0) D 07/12/17 05:45 Urine Color Yellow 07/11/17 19:50 Urine Appearance Turbid 07/11/17 19:50 Urine pH 5.0 (5.0-8.0) 07/11/17 19:50 Ur Specific [place] 1.020 (1.001-1.035) 07/11/17 19:50 Urine Protein Negative (NEGATIVE) 07/11/17 19:50 Urine Glucose (UA) Negative (NEGATIVE) 07/11/17 19:50 Urine Ketones Negative (NEGATIVE) 07/11/17 19:50 Urine Blood Negative (NEGATIVE) 07/11/17 19:50 Urine Nitrite Negative (NEGATIVE) 07/11/17 19:50 Urine Bilirubin Negative (NEGATIVE) 07/11/17 19:50 Urine Urobilinogen Negative mg/dL (0.2-1.0) 07/11/17 19:50 Ur Leukocyte Esterase Negative (NEGATIVE) 07/11/17 19:50 HIV 1&2 Antibody Screen Negative 07/11/17 05:45 HIV P24 Antigen Negative 07/11/17 05:45 Assessment: 07/12/17 12:33 WITHDRAWAL SX Plan: CONTINUE DETOX INCREASE PO FLUIDS
--- NOTE | 2017-07-12 16:13 | CONSULT ---
[facility] Psychiatric Consult - Data Date of interview: 07/12/17 Admission source: [facility] Identifying data: Pt. is a 51 year old male, single, without kids, and on disability.This is one of multiple admissions for patient. Pt. admitted to for alcohol and cocaine dependence. Substance Abuse History: Following information confirmed with Mr. Millard: - Smoking Cessation. Smoking history: Current every day smoker. Have you smoked in the past 12 months: Yes. Aproximately how many cigarettes per day: 4. Cigars Per Day: 0. Hx Chewing Tobacco Use: No. Initiated information on smoking cessation: Yes. 'Breaking Loose' booklet given: 07/11/17. - Substance & Tx. History. Hx Alcohol Use: Yes. Hx Substance Use: Yes. Substance Use Type : Alcohol, Cocaine. Hx Substance Use Treatment: Yes (06/2016 [facility]). - Substances Abused. Alcohol. Route: Oral. Frequency: Daily. Amount used: 1 pint of vodka. Age of first use: 18. Date of Last Use: 07/11/17. Cocaine. Route: Inhalation. Frequency: 1-2 times per week. Amount used: $20. Age of first use: 29. Date of Last Use: 06/10/17 Medical History: hypertension, Acid reflux Psychiatric History: Pt. reports numerous psychiatric hospitalizations. Was most recently hospitalized at [facility] psychiatric unit for 3 weeks 1 1/2 year ago. Reports a diagnosis of schizophrenia and anxiety. Pt. has also been admitted to [facility] and [facility]. Pt. currently see's a psychiatrist at [facility] and is prescribed Prozac 40mg po daily, Mirtazapine 30mg, seroquel 800qhs. Pharmacy claims reviewed and verified. Physical/Sexual Abuse/Trauma History: Denies. Mental Status Exam - Mental Status Exam Alert and Oriented to: Time, Place, Person Cognitive Function: Good Patient Appearance: Well Groomed Mood: Hopeful Affect: Normal Range Patient Behavior: Cooperative Speech Pattern: Appropriate Voice Loudness: Normal Thought Process: Goal Oriented Thought Disorder: Not Present Hallucinations: Denies Suicidal Ideation: Denies Homicidal Ideation: Denies Insight/Judgement: Poor Sleep: Poorly Appetite: Fair Muscle strength/Tone: Normal Gait/Station: Normal Psychiatric Findings - Problem List ([place] 1, 2,3) (1) Alcohol dependence with uncomplicated withdrawal Current Visit: Yes Status: Acute (2) Cocaine dependence Current Visit: Yes Status: Acute Qualifiers: Substance use status: uncomplicated Qualified Code(s): F14.20 - Cocaine dependence, uncomplicated (3) Nicotine dependence Current Visit: Yes Status: Acute Qualifiers: Nicotine product type: cigarettes Substance use status: in withdrawal Qualified Code(s): F17.213 - Nicotine dependence, cigarettes, with withdrawal (4) Alcohol dependence Current Visit: No Status: Chronic (5) Insomnia Current Visit: Yes Status: Acute (6) Schizophrenia Current Visit: Yes Status: Chronic Qualifiers: Schizophrenia type: disorganized schizophrenia Qualified Code(s): F20.1 - Disorganized schizophrenia Comment: Self reports. - Initial Treatment Plan Initial Treatment Plan: Psychoeducation provided. Detoxification in progress. Seroquel 800mg qhs+benadryl 50mg qhs prn ordered. Trazodone to be held due to prolong qt. Verbal consent given. Pt. agreeable with plan. Will continue to monitor.
[2017-07-12] MEDS: NICOTINE POLACRILEX 2 MG GUM BC PRN (20:53)
[2017-07-12] MEDS ORDERED: diphenhydrAMINE HCL 50 MG CAPSULE PO PRN (22:00)
[2017-07-12] MEDS: THIAMINE HCL 100 MG TABLET (FP) PO SCH (22:28)
[2017-07-12] MEDS: QUEtiapine FUMARATE 400 MG TABLET PO SCH (22:29)
[2017-07-12] MEDS: MINERAL OIL/PETROLAT/WATER TOPICAL CREAM 113 GM JAR TP SCH (22:30)
[2017-07-13] MEDS: chlordiazePOXIDE HCL 25 MG CAPSULE PO SCH ×3 (05:24→17:09)
[2017-07-13] MEDS: HYDROCHLOROTHIAZIDE 25 MG TABLET (FP) PO SCH (10:59)
[2017-07-13] MEDS: NICOTINE 14 MG/24 HOURS TOPICAL PATCH TD SCH (10:59)
[2017-07-13] MEDS: RANITIDINE HCL 150 MG TABLET (FP) PO SCH ×2 (10:59→22:05)
[2017-07-13] MEDS: PRENATAL VITAMINS W/ FOLIC ACID TABLET (FP) PO SCH (10:59)
[2017-07-13] MEDS: FLUoxetine HCL 20 MG CAPSULE (FP) PO SCH (11:00)
--- NOTE | 2017-07-13 11:52 | PN ---
[facility] CIWA - CIWA Score Nausea/Vomitin-No Nausea/No Vomiting Muscle Tremors: 4-Moderate,w/Arms Extend Anxiety: 4-Mod. Anxious/Guarded Agitation: 4-Moderately Restless Paroxysmal Sweats: 1-Minimal Palms Moist Orientation: 0-Oriented Tacttile Disturbances: 3-Moderate Itch/Numb/Burn Auditory Disturbances: 0-None Visual Disturbances: 0-None Headache: 0-None Present CIWA-Ar Total Score: 16 [facility] Progress Note (SOAP) Subjective: SLIGHT ANXIETY,SWEATS, CHILLS. FATIGUE. Objective: 07/13/17 11:51 Vital Signs Temperature 97.0 F L 07/13/17 09:09 Pulse Rate 106 H 07/13/17 09:09 Respiratory Rate 20 07/13/17 09:09 Blood Pressure 111/86 07/13/17 09:09 O2 Sat by Pulse Oximetry (%) Laboratory Last Values WBC 8.3 K/mm3 (4.0-10.0) 07/12/17 05:45 RBC 4.41 M/mm3 (4.00-5.60) 07/12/17 05:45 Hgb 13.3 GM/dL (11.7-16.9) 07/12/17 05:45 Hct 40.9 % (35.4-49) 07/12/17 05:45 MCV 92.6 fl (80-96) 07/12/17 05:45 MCH 30.2 pg (25.7-33.7) 07/12/17 05:45 MCHC 32.6 g/dl (32.0-35.9) 07/12/17 05:45 RDW 16.1 % (11.9-15.9) H 07/12/17 05:45 Plt Count 227 K/MM3 (134-434) 07/12/17 05:45 MPV 9.3 fl (7.5-11.1) 07/12/17 05:45 Sodium 143 mmol/L (136-145) 07/12/17 05:45 Potassium 3.8 mmol/L (3.5-5.1) 07/12/17 05:45 Chloride 104 mmol/L (98-107) 07/12/17 05:45 Carbon Dioxide 28 mmol/L (21-32) 07/12/17 05:45 Anion Gap 11 (8-16) 07/12/17 05:45 BUN 14 mg/dL (7-18) 07/12/17 05:45 Creatinine 1.0 mg/dL (0.7-1.3) 07/12/17 05:45 Creat Clearance w eGFR > 60 (>60) 07/12/17 05:45 Random Glucose 114 mg/dL (74-106) H D 07/12/17 05:45 Calcium 9.6 mg/dL (8.5-10.1) 07/12/17 05:45 Total Bilirubin 0.3 mg/dL (0.2-1.0) D 07/12/17 05:45 AST 43 U/L (15-37) H D 07/12/17 05:45 ALT 65 U/L (12-78) D 07/12/17 05:45 Alkaline Phosphatase 106 U/L (45-117) D 07/12/17 05:45 Total Protein 8.4 g/dl (6.4-8.2) H D 07/12/17 05:45 Albumin 4.0 g/dl (3.4-5.0) D 07/12/17 05:45 Urine Color Yellow 07/11/17 19:50 Urine Appearance Turbid 07/11/17 19:50 Urine pH 5.0 (5.0-8.0) 07/11/17 19:50 Ur Specific [place] 1.020 (1.001-1.035) 07/11/17 19:50 Urine Protein Negative (NEGATIVE) 07/11/17 19:50 Urine Glucose (UA) Negative (NEGATIVE) 07/11/17 19:50 Urine Ketones Negative (NEGATIVE) 07/11/17 19:50 Urine Blood Negative (NEGATIVE) 07/11/17 19:50 Urine Nitrite Negative (NEGATIVE) 07/11/17 19:50 Urine Bilirubin Negative (NEGATIVE) 07/11/17 19:50 Urine Urobilinogen Negative mg/dL (0.2-1.0) 07/11/17 19:50 Ur Leukocyte Esterase Negative (NEGATIVE) 07/11/17 19:50 RPR Titer Nonreactive (NONREACTIVE) 07/12/17 05:45 HIV 1&2 Antibody Screen Negative 07/11/17 05:45 HIV P24 Antigen Negative 07/11/17 05:45 Assessment: 07/13/17 11:51 WITHDRAWAL SX Plan: CONTINUE DETOX
--- NOTE | 2017-07-13 16:33 | PN ---
Psychiatric Progress Note Vital Signs: Vital Signs Period Temp Pulse Resp BP Sys/Whitney Pulse Ox Last 24 Hr 96.1 F-97.2 F 84-106 16-20 106-136/69-95 Date of Session: 07/13/17 Chief Complaint:: "I still have insomnia and would like my to take my depression medication." HPI: Pt. admitted to for alcohol and cocaine dependence. ROS: Unremarkable Current Medications: Active Medications Generic Name Dose Route Start Last Admin Trade Name Freq PRN Reason Stop Dose Admin Acetaminophen 650 mg 07/11/17 16:37 Tylenol - PO Q4H PRN FEVER Al Hydroxide/Mg Hydroxide 30 ml 07/11/17 16:37 Mylanta Oral Suspension - PO Q6H PRN DYSPEPSIA Chlordiazepoxide HCl 25 mg 07/12/17 23:00 07/13/17 10:59 Librium - PO 07/13/17 17:01 25 mg [id number] JD Administration Chlordiazepoxide HCl 15 mg 07/13/17 23:00 Librium - PO 07/14/17 17:01 [id number] JD Chlordiazepoxide HCl 25 mg 07/11/17 16:37 07/12/17 01:53 Librium - PO 07/14/17 16:36 25 mg Q4H PRN Administration WITHDRAWAL(CONT SUBST) Chlordiazepoxide HCl 10 mg 07/14/17 23:00 Librium - PO 07/15/17 17:01 [id number] JD Colloidal Oatmeal 1 applic 07/11/17 16:41 Aveeno Soap - TP DAILY PRN HYGEINE Diphenhydramine HCl 50 mg 07/12/17 22:00 07/12/17 22:29 Benadryl - PO 50 mg HS PRN Administration INSOMNIA Eucalyptus/Menthol/Phenol/Sorbitol 1 each 07/11/17 16:37 Cepastat Lozenge - MM Q4H PRN SORE THROAT Fluoxetine HCl 40 mg 07/13/17 10:00 07/13/17 11:00 Prozac - PO 40 mg DAILY JD Administration Guaifenesin 10 ml 07/11/17 16:37 Robitussin Dm - PO Q6H PRN COUGH Hydrochlorothiazide 25 mg 07/11/17 18:00 07/13/17 10:59 Hctz - PO 25 mg DAILY JD Administration Loperamide HCl 4 mg 07/11/17 16:37 Imodium - PO Q6H PRN DIARRHEA Magnesium Citrate 300 ml 07/11/17 16:37 Citroma - PO Q48H PRN CONSTIPATION Magnesium Hydroxide 30 ml 07/11/17 16:37 Milk Of Magnesia - PO DAILY PRN CONSTIPATION Multi-Ingredient Lotion 1 applic 07/11/17 22:00 07/12/17 22:30 Eucerin (Small Jar) - TP 1 applic HS JD Administration Nicotine 14 mg 07/12/17 10:00 07/13/17 10:59 Nicoderm Patch - TD Not Given DAILY JD Nicotine Polacrilex 2 mg 07/11/17 16:37 07/12/17 20:53 Nicorette Gum - BC 2 mg Q2H PRN Administration NICOTINE REPLACEMENT RX Multivit/Folic Acid/Iron 1 tab 07/12/17 10:00 07/13/17 10:59 Vitamins (Sjr) - PO 1 tab DAILY JD Administration Pseudoephedrine/Triprolidine 1 combo 07/11/17 16:37 Actifed - PO TID PRN NASAL CONGESTION Quetiapine Fumarate 800 mg 07/11/17 22:00 07/12/17 22:29 Seroquel - PO 800 mg HS JD Administration Ranitidine HCl 150 mg 07/11/17 22:00 07/13/17 10:59 Zantac - PO 150 mg BID JD Administration Thiamine HCl 100 mg 07/11/17 22:00 07/12/17 22:28 Vitamin B1 - PO 100 mg HS JD Administration Current Side Effect: No Lab tests ordered: No Lab tests reviewed: Yes Provider note:: Entry Tech approached patient concerning psychiatric reconsultation. Pt. requesting to restart his prozac at 20mg instead of 40mg. Pharmacy claims reviewed and verified. Pt. alsp requesting additional sleep aid. Stated the benadryl 50mg was not effective. Reports falling asleep after 1am. Psychoeducation and sleep hygiene provided. Due to prolong qtc of 487 trazodone will not be ordered,benadryl 50mg will be d/c and ambien 10mg will be ordered for tonight. Pt. reports favorable effect from taking ambien 10mg in the past. Total face to face time:: 25 Mental Status Exam - Mental Status Exam Alert and Oriented to: Time, Place, Person Cognitive Function: Good Patient Appearance: Well Groomed Mood: Hopeful Affect: Mood Congruent Patient Behavior: Appropriate, Cooperative Speech Pattern: Appropriate Voice Loudness: Normal Thought Process: Goal Oriented Thought Disorder: Not Present Hallucinations: Denies Suicidal Ideation: Denies Homicidal Ideation: Denies Insight/Judgement: Poor Sleep: Poorly Appetite: Poor Muscle strength/Tone: Normal Gait/Station: Normal Psychiatric Treatment Plan - Problem List (1) Alcohol dependence with uncomplicated withdrawal Current Visit: Yes (2) Cocaine dependence Current Visit: Yes Qualifiers: Substance use status: uncomplicated Qualified Code(s): F14.20 - Cocaine dependence, uncomplicated (3) Nicotine dependence Current Visit: Yes Qualifiers: Nicotine product type: cigarettes Substance use status: in withdrawal Qualified Code(s): F17.213 - Nicotine dependence, cigarettes, with withdrawal (4) Alcohol dependence Current Visit: Yes (5) Insomnia Current Visit: Yes (6) Schizophrenia Current Visit: Yes Qualifiers: Schizophrenia type: disorganized schizophrenia Qualified Code(s): F20.1 - Disorganized schizophrenia Comment: Self reports.
[2017-07-13] MEDS ORDERED: ZOLPIDEM TARTRATE 10 MG TABLET (PARK CARE ONLY) PO PRN (22:00)
[2017-07-13] MEDS: QUEtiapine FUMARATE 400 MG TABLET PO SCH (22:05)
[2017-07-13] MEDS: MINERAL OIL/PETROLAT/WATER TOPICAL CREAM 113 GM JAR TP SCH (22:05)
[2017-07-13] MEDS: chlordiazePOXIDE 5 MG CAPSULE PO SCH (22:05)
[2017-07-13] MEDS: THIAMINE HCL 100 MG TABLET (FP) PO SCH (22:05)
[2017-07-14] MEDS: chlordiazePOXIDE 5 MG CAPSULE PO SCH ×2 (06:08→10:51)
[2017-07-14 09:48] VITALS: TEMP 95.3
[2017-07-14] MEDS: PRENATAL VITAMINS W/ FOLIC ACID TABLET (FP) PO SCH (10:51)
[2017-07-14] MEDS: NICOTINE 14 MG/24 HOURS TOPICAL PATCH TD SCH (10:51)
[2017-07-14] MEDS: FLUoxetine HCL 20 MG CAPSULE (FP) PO SCH (10:51)
[2017-07-14] MEDS: HYDROCHLOROTHIAZIDE 25 MG TABLET (FP) PO SCH (10:51)
[2017-07-14] MEDS: RANITIDINE HCL 150 MG TABLET (FP) PO SCH (10:51)
--- NOTE | 2017-07-14 13:50 | PN ---
S Progress Note (SOAP) Subjective: ANXIETY,SWEATS. DECREASED TREMORS. ALERT O X 3. OOB WITH STEADY GAIT. Objective: 07/14/17 13:50 Vital Signs Temperature 95.3 F L 07/14/17 09:48 Pulse Rate 92 H 07/14/17 09:48 Respiratory Rate 18 07/14/17 09:48 Blood Pressure 123/86 07/14/17 09:48 O2 Sat by Pulse Oximetry (%) Laboratory Last Values WBC 8.3 K/mm3 (4.0-10.0) 07/12/17 05:45 RBC 4.41 M/mm3 (4.00-5.60) 07/12/17 05:45 Hgb 13.3 GM/dL (11.7-16.9) 07/12/17 05:45 Hct 40.9 % (35.4-49) 07/12/17 05:45 MCV 92.6 fl (80-96) 07/12/17 05:45 MCH 30.2 pg (25.7-33.7) 07/12/17 05:45 MCHC 32.6 g/dl (32.0-35.9) 07/12/17 05:45 RDW 16.1 % (11.9-15.9) H 07/12/17 05:45 Plt Count 227 K/MM3 (134-434) 07/12/17 05:45 MPV 9.3 fl (7.5-11.1) 07/12/17 05:45 Sodium 143 mmol/L (136-145) 07/12/17 05:45 Potassium 3.8 mmol/L (3.5-5.1) 07/12/17 05:45 Chloride 104 mmol/L (98-107) 07/12/17 05:45 Carbon Dioxide 28 mmol/L (21-32) 07/12/17 05:45 Anion Gap 11 (8-16) 07/12/17 05:45 BUN 14 mg/dL (7-18) 07/12/17 05:45 Creatinine 1.0 mg/dL (0.7-1.3) 07/12/17 05:45 Creat Clearance w eGFR > 60 (>60) 07/12/17 05:45 Random Glucose 114 mg/dL (74-106) H D 07/12/17 05:45 Calcium 9.6 mg/dL (8.5-10.1) 07/12/17 05:45 Total Bilirubin 0.3 mg/dL (0.2-1.0) D 07/12/17 05:45 AST 43 U/L (15-37) H D 07/12/17 05:45 ALT 65 U/L (12-78) D 07/12/17 05:45 Alkaline Phosphatase 106 U/L (45-117) D 07/12/17 05:45 Total Protein 8.4 g/dl (6.4-8.2) H D 07/12/17 05:45 Albumin 4.0 g/dl (3.4-5.0) D 07/12/17 05:45 Urine Color Yellow 07/11/17 19:50 Urine Appearance Turbid 07/11/17 19:50 Urine pH 5.0 (5.0-8.0) 07/11/17 19:50 Ur Specific [place] 1.020 (1.001-1.035) 07/11/17 19:50 Urine Protein Negative (NEGATIVE) 07/11/17 19:50 Urine Glucose (UA) Negative (NEGATIVE) 07/11/17 19:50 Urine Ketones Negative (NEGATIVE) 07/11/17 19:50 Urine Blood Negative (NEGATIVE) 07/11/17 19:50 Urine Nitrite Negative (NEGATIVE) 07/11/17 19:50 Urine Bilirubin Negative (NEGATIVE) 07/11/17 19:50 Urine Urobilinogen Negative mg/dL (0.2-1.0) 07/11/17 19:50 Ur Leukocyte Esterase Negative (NEGATIVE) 07/11/17 19:50 RPR Titer Nonreactive (NONREACTIVE) 07/12/17 05:45 HIV 1&2 Antibody Screen Negative 07/11/17 05:45 HIV P24 Antigen Negative 07/11/17 05:45 Assessment: 07/14/17 13:50 WITHDRAWAL SX Plan: CONTINUE DETOX
[2017-07-14 14:01] VITALS: BP 143/96; PULSE 93
--- NOTE | 2017-07-14 18:05 | DS ---
[facility] Detox Discharge Summary Admission Date: 07/11/17 Discharge Date: 07/14/17 - History Present History: Alcohol Dependence, Cocaine Dependence Additional Comments: Patient declined to complete detox stating he has important things to take care of outside here. Alert o x 3. NAD. Pertinent Past History: See Dx Below - Physical Exam Results Vital Signs: Vital Signs Temperature 95.3 F L 07/14/17 14:00 Pulse Rate 93 H 07/14/17 14:00 Respiratory Rate 18 07/14/17 14:00 Blood Pressure 143/96 07/14/17 14:00 O2 Sat by Pulse Oximetry (%) Pertinent Admission Physical Exam Findings: withrawal sx Laboratory Last Values WBC 8.3 K/mm3 (4.0-10.0) 07/12/17 05:45 RBC 4.41 M/mm3 (4.00-5.60) 07/12/17 05:45 Hgb 13.3 GM/dL (11.7-16.9) 07/12/17 05:45 Hct 40.9 % (35.4-49) 07/12/17 05:45 MCV 92.6 fl (80-96) 07/12/17 05:45 MCH 30.2 pg (25.7-33.7) 07/12/17 05:45 MCHC 32.6 g/dl (32.0-35.9) 07/12/17 05:45 RDW 16.1 % (11.9-15.9) H 07/12/17 05:45 Plt Count 227 K/MM3 (134-434) 07/12/17 05:45 MPV 9.3 fl (7.5-11.1) 07/12/17 05:45 Sodium 143 mmol/L (136-145) 07/12/17 05:45 Potassium 3.8 mmol/L (3.5-5.1) 07/12/17 05:45 Chloride 104 mmol/L (98-107) 07/12/17 05:45 Carbon Dioxide 28 mmol/L (21-32) 07/12/17 05:45 Anion Gap 11 (8-16) 07/12/17 05:45 BUN 14 mg/dL (7-18) 07/12/17 05:45 Creatinine 1.0 mg/dL (0.7-1.3) 07/12/17 05:45 Creat Clearance w eGFR > 60 (>60) 07/12/17 05:45 Random Glucose 114 mg/dL (74-106) H D 07/12/17 05:45 Calcium 9.6 mg/dL (8.5-10.1) 07/12/17 05:45 Total Bilirubin 0.3 mg/dL (0.2-1.0) D 07/12/17 05:45 AST 43 U/L (15-37) H D 07/12/17 05:45 ALT 65 U/L (12-78) D 07/12/17 05:45 Alkaline Phosphatase 106 U/L (45-117) D 07/12/17 05:45 Total Protein 8.4 g/dl (6.4-8.2) H D 07/12/17 05:45 Albumin 4.0 g/dl (3.4-5.0) D 07/12/17 05:45 Urine Color Yellow 07/11/17 19:50 Urine Appearance Turbid 07/11/17 19:50 Urine pH 5.0 (5.0-8.0) 07/11/17 19:50 Ur Specific [place] 1.020 (1.001-1.035) 07/11/17 19:50 Urine Protein Negative (NEGATIVE) 07/11/17 19:50 Urine Glucose (UA) Negative (NEGATIVE) 07/11/17 19:50 Urine Ketones Negative (NEGATIVE) 07/11/17 19:50 Urine Blood Negative (NEGATIVE) 07/11/17 19:50 Urine Nitrite Negative (NEGATIVE) 07/11/17 19:50 Urine Bilirubin Negative (NEGATIVE) 07/11/17 19:50 Urine Urobilinogen Negative mg/dL (0.2-1.0) 07/11/17 19:50 Ur Leukocyte Esterase Negative (NEGATIVE) 07/11/17 19:50 RPR Titer Nonreactive (NONREACTIVE) 07/12/17 05:45 HIV 1&2 Antibody Screen Negative 07/11/17 05:45 HIV P24 Antigen Negative 07/11/17 05:45 - Treatment Hospital Course: Discharged Condition Good - Medication Discharge Medications: Ambulatory Orders Hydrochlorothiazide [Hctz -] 25 mg PO DAILY #30 tablet 04/24/15 Alprazolam [Xanax] 0.25 mg PO DAILY PRN 09/05/15 Trazodone HCl [Desyrel -] 100 mg PO HS #30 tablet 07/13/16 Diphenhydramine HCl [Benadryl Capsule -] 25 mg PO HS 07/11/17 Omeprazole Magnesium [Prilosec Otc] 40 mg PO DAILY 07/11/17 Quetiapine Fumarate [Seroquel -] 800 mg PO HS #60 tablet 07/14/17 - Diagnosis (1) Alcohol dependence with uncomplicated withdrawal Status: Acute (2) Nicotine dependence Status: Acute Qualifiers: Nicotine product type: cigarettes Substance use status: in withdrawal Qualified Code(s): F17.213 - Nicotine dependence, cigarettes, with withdrawal (3) GERD (gastroesophageal reflux disease) Status: Chronic Qualifiers: Esophagitis presence: without esophagitis Qualified Code(s): K21.9 - Gastro -esophageal reflux disease without esophagitis (4) HTN (hypertension) Status: Chronic Qualifiers: Hypertension type: essential hypertension Qualified Code(s): I10 - Essential (primary) hypertension (5) Seizure Status: Suspected (6) Cocaine dependence Status: Acute Qualifiers: Substance use status: uncomplicated Qualified Code(s): F14.20 - Cocaine dependence, uncomplicated - AMA Did Patient Leave Against Medical Advice: Yes (AMA)
[2017-07-14] MEDS ORDERED: chlordiazePOXIDE HCL 10 MG CAPSULE PO SCH (23:00)
== END 2017-07-14 02:51 | disposition left against medical advice (07) | DRG 894 ==
LOC: YASAS 11:45 → Y3N 16:46
PROVIDERS: ADMIT Internal Medicine; ATTEND Internal Medicine
PROC: HZ2ZZZZ Detoxification Services for Substance Abuse Treatment (ICD-10-PCS; principal; 2017-07-11)
DX: F19.230 Other psychoactive substance dependence with withdrawal, uncomplicated (principal); F14.20 Cocaine dependence, uncomplicated; F20.1 Disorganized schizophrenia; F10.230 Alcohol dependence with withdrawal, uncomplicated; F17.210 Nicotine dependence, cigarettes, uncomplicated; G47.00 Insomnia, unspecified; I10 Essential (primary) hypertension; K21.9 Gastro-esophageal reflux disease without esophagitis; R56.9 Unspecified convulsions
CPT/HCPCS: 36415; 80053; 81003; 85027; 86593; 87389; 93005; 93010